=== PATIENT | female | born 1985 | race Caucasian/White ===

== ENCOUNTER 2017-12-28 09:00 | Emergency (ER) | payer OTHER ==
--- NOTE | 2017-12-28 09:21 | EDPHY ---
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 However she does not have fever, sore throat, cough, myalgias, headache. Patient currently has right lower quadrant abdominal pain which started slowly this morning. Associated with nausea and vomiting but no hematemesis or coffee- ground emesis. She has had diarrhea for about 6 weeks and that is unchanged. Symptoms moderate to severe now and not better or worse with anything. REVIEW OF SYSTEMS: Eye: no change in vision ENT: no sore throat Cardiac: no chest pain or syncope Pulmonary: no cough or SOB Abdomen: HPI Musculoskeletal: no back pain Skin: no rash Neuro: no headache Constitutional: no fever : no urinary symptoms A comprehensive 10 point review of systems is otherwise negative aside from elements mentioned in the history of present illness. PAST MEDICAL HISTORY: Includes uterine ablation, , dental surgery Social history: Works at urgent care General Appearance: Alert and conversant, cooperative. Eyes: No scleral icterus. ENT, Mouth: Normal mucous membranes. Respiratory: Normal respiratory effort, breath sounds equal, lungs are clear to auscultation. Cardiovascular: Regular rate and rhythm. Gastrointestinal: Right lower quadrant tenderness to palpation. No Quiros sign. Neurological: Alert, face symmetric, normal motor and sensory in extremities. Skin: Warm and dry, no rashes. Musculoskeletal: No peripheral edema. Normal range of motion of the neck. Psychiatric: Not agitated. Emergency Department course/MDM: Fentanyl 100 mcg IV, Zofran 4 mg IV for nausea and vomiting, IV normal saline for nausea and vomiting. Pelvic and right lower quadrant appendicitis ultrasound. 1110: Fentanyl repeated for pain [address] abdomen and pelvis to evaluate for appendicitis discussed and consented. 1300: Results discussed, still has pain. Toradol 15 mg IV and Percocet 1 orally. Plan to discharge if feeling okay. 1346: evaluation repeated. Patient says she has adequate pain control and would be okay with going home which I think is reasonable. Follow-up with her primary care provider or wharf hand referral. More likely to be ovarian cyst than appendicitis or PID or renal colic or acute surgical abdominal process, at this time. Smoking Status: Current every day smoker Constitutional: Initial Vital Signs Temperature (C) 37.1 C 12/28/17 09:09 Heart Rate 63 12/28/17 09:09 Respiratory Rate 16 12/28/17 09:09 Blood Pressure 129/81 H 12/28/17 09:09 O2 Sat (%) 98 12/28/17 09:09 O2 Delivery Mode Room Air Allergies/Adverse Reactions: bupropion [From Wellbutrin] Allergy (Verified 12/28/17 09:09) moxifloxacin [From Avelox] Allergy (Verified 12/28/17 09:09) Home Medications: Medication Instructions Recorded Ibuprofen 12/28/17 Xanax 12/28/17 oxyCODONE/APAP 5/325 [Percocet] 1 tab PO Q4-6PRN PRN #11 tab 12/28/17 Medical Decision Making - Diagnostics Imaging Results: Imaging Impressions Abdomen Ultrasound 12/28/17 09:33 Impression: 2.2 cm simple appearing cyst right ovary. No evidence for ovarian torsion. Leiomyomatous uterus. Ultrasound Abdomen Limited, Right Lower Quadrant History: Right lower quadrant pain. Findings: Ultrasound was performed of the right lower quadrant. Neither a normal nor an abnormal appendix is visualized. No evidence for free fluid. Impression: Indeterminate study for appendicitis as a normal nor an abnormal appendix is visualized. Results called and discussed with John Swann on 12/28/2017 at 11:20 a.m. Pelvic/Renal Ultrasound 12/28/17 09:33 Impression: 2.2 cm simple appearing cyst right ovary. No evidence for ovarian torsion. Leiomyomatous uterus. Ultrasound Abdomen Limited, Right Lower Quadrant History: Right lower quadrant pain. Findings: Ultrasound was performed of the right lower quadrant. Neither a normal nor an abnormal appendix is visualized. No evidence for free fluid. Impression: Indeterminate study for appendicitis as a normal nor an abnormal appendix is visualized. Results called and discussed with John Swann on 12/28/2017 at 11:[address] 12/28/17 11:36 Impression: 1. Cholelithiasis without definite cholecystitis. 2. Constipation. 3. No CT evidence of appendicitis, abscess or bowel obstruction. 4. Right ovarian 2.4 x 1.8 cm cyst or dominant follicle. Findings and recommendations discussed with Emergency Department physician, Dr. John Swann at 1221 hours on December 28, 2017. Final report concurs with initial preliminary interpretation. Imaging: Discussed imaging studies w/ call worker Radiologist Differential Diagnosis: Differential considered including but not limited to UTI, PID, ovarian torsion or cyst, renal colic, appendicitis, diverticulitis, other surgical problem. - Data Points Laboratory Results: Laboratory Results 12/28/17 09:30 12/28/17 09:30 12/28/17 12/28/17 12/28/17 11:15 09:30 09:30 WBC RBC Hgb Hct MCV MCH MCHC RDW Plt Count MPV Neut % (Auto) Lymph % (Auto) [place] % (Auto) Eos % (Auto) Baso % (Auto) Nucleat RBC Rel Count Absolute Neuts (auto) Absolute Lymphs (auto) Absolute Monos (auto) Absolute Eos (auto) Absolute Basos (auto) Absolute Nucleated RBC Immature Gran % Immature Gran # Sodium 140 mEq/L mEq/L (135-145) Potassium 4.0 mEq/L mEq/L (3.3-5.0) Chloride 108 mEq/L mEq/L (97-110) Carbon Dioxide 23 mEq/l mEq/l (22-31) Anion Gap 9 mEq/L mEq/L (6-14) BUN 9 mg/dL mg/dL (7-23) Creatinine 0.5 mg/dL L mg/dL (0.6-1.0) Estimated GFR > 60 Glucose 96 mg/dL mg/dL (70-100) Calcium 9.6 mg/dL mg/dL (8.5-10.4) Beta HCG, Qual NEGATIVE Urine Color YELLOW Urine Appearance MODERATELY TURBID Urine pH 5.0 (5.0-7.5) Ur Specific [place] 1.023 (1.002-1.030) Urine Protein NEGATIVE (NEGATIVE) Urine Ketones NEGATIVE (NEGATIVE) Urine Blood NEGATIVE (NEGATIVE) Urine Nitrate NEGATIVE (NEGATIVE) Urine Bilirubin NEGATIVE (NEGATIVE) Urine Urobilinogen NEGATIVE EU EU (0.2-1.0) Ur Leukocyte Esterase NEGATIVE (NEGATIVE) Urine Glucose NEGATIVE (NEGATIVE) 12/28/17 09:30 WBC 8.34 10^3/uL 10^3/uL (3.80-9.50) RBC 5.00 10^6/uL 10^6/uL (4.18-5.33) Hgb 14.6 g/dL g/dL (12.6-16.3) Hct 41.5 % % (38.0-47.0) MCV 83.0 fL fL (81.5-99.8) MCH 29.2 pg pg (27.9-34.1) MCHC 35.2 g/dL g/dL (32.4-36.7) RDW 13.8 % % (11.5-15.2) Plt Count 133 10^3/uL L 10^3/uL (150-400) MPV 11.3 fL fL (8.7-11.7) Neut % (Auto) 64.6 % % (39.3-74.2) Lymph % (Auto) 25.4 % % (15.0-45.0) [place] % (Auto) 8.0 % % (4.5-13.0) Eos % (Auto) 1.0 % % (0.6-7.6) Baso % (Auto) 0.4 % % (0.3-1.7) Nucleat RBC Rel Count 0.0 % % (0.0-0.2) Absolute Neuts (auto) 5.39 10^3/uL 10^3/uL (1.70-6.50) Absolute Lymphs (auto) 2.12 10^3/uL 10^3/uL (1.00-3.00) Absolute Monos (auto) 0.67 10^3/uL 10^3/uL (0.30-0.80) Absolute Eos (auto) 0.08 10^3/uL 10^3/uL (0.03-0.40) Absolute Basos (auto) 0.03 10^3/uL 10^3/uL (0.02-0.10) Absolute Nucleated RBC 0.00 10^3/uL 10^3/uL (0-0.01) Immature Gran % 0.6 % % (0.0-1.1) Immature Gran # 0.05 10^3/uL 10^3/uL (0.00-0.10) Sodium Potassium Chloride Carbon Dioxide Anion Gap BUN Creatinine Estimated GFR Glucose Calcium Beta HCG, Qual Urine Color Urine Appearance Urine pH Ur Specific [place] Urine Protein Urine Ketones Urine Blood Urine Nitrate Urine Bilirubin Urine Urobilinogen Ur Leukocyte Esterase Urine Glucose Medications Given: Discontinued Medications Fentanyl (Sublimaze) 100 mcg IVP EDNOW ONE Stop: 12/28/17 09:33 Last Admin: 12/28/17 09:41 Dose: 100 mcg Fentanyl (Sublimaze) 100 mcg IVP EDNOW ONE Stop: 12/28/17 11:11 Last Admin: 12/28/17 11:14 Dose: 100 mcg Sodium Chloride (Ns) 1,000 mls @ 0 mls/hr IV EDNOW ONE; Wide Open PRN Reason: Protocol Stop: 12/28/17 09:33 Last Admin: 12/28/17 09:40 Dose: 1,000 mls Ketorolac Tromethamine (Toradol) 15 mg IVP EDNOW ONE Stop: 12/28/17 13:04 Last Admin: 12/28/17 13:10 Dose: 15 mg Ondansetron HCl (Zofran) 4 mg IVP EDNOW ONE Stop: 12/28/17 09:33 Last Admin: 12/28/17 09:41 Dose: 4 mg Oxycodone/Acetaminophen (Percocet 5/325) 1 tab PO EDNOW ONE Stop: 12/28/17 13:04 Last Admin: 12/28/17 13:10 Dose: 1 tab Departure - Departure Disposition: Home, Routine, Self-Care Clinical Impression: Ovarian cyst Qualifiers: Laterality: right Qualified Code(s): N83.201 - Unspecified ovarian cyst, right side Condition: Good Instructions: Ovarian Cyst (ED) Additional Instructions: Ibuprofen 600 mg by mouth every 8 hr over the next 3 days. You can also use a comparable nonsteroidal if you prefer. Please follow-up with your doctor tomorrow for not better or with your doctor or OBGYN referral next week. Return for worsening or severe pain or fever or vomiting. Referrals: Kim Clark MD [Primary Care Provider] - As per Instructions Erin Robbins MD [Medical Doctor] - As per Instructions Prescriptions: oxyCODONE/APAP 5/325 [Percocet] 1 tab PO Q4-6PRN PRN #11 tab PRN Reason: Pain
[2017-12-28] MEDS ORDERED: NS 1,000 ML IV ONE (09:32)
[2017-12-28] MEDS ORDERED: fentaNYL 100 MCG/2 ML INJ IVP ONE ×2 (09:32→11:10)
[2017-12-28] MEDS ORDERED: ONDANSETRON 4 MG/2 ML VIAL IVP ONE (09:32)
[2017-12-28 10:16] LABS: PLATELET COUNT 133 10^3/uL (150-400)
[2017-12-28] MEDS ORDERED: IOPAMIDOL (ISOVUE-300) 100 ML BTL ONE (11:46)
[2017-12-28] MEDS ORDERED: KETOROLAC 30 MG/1 ML SDV IVP ONE (13:03)
[2017-12-28] MEDS ORDERED: OXYCODONE/APAP 5/325 TAB PO ONE (13:03)
[2017-12-28] MEDS ORDERED: ONDANSETRON 4 MG/2 ML VIAL ONE (13:06)
[2017-12-28 13:57] VITALS: BP 107/65
== END 2017-12-28 13:56 | disposition home or self-care (01) ==
DX: N83.291 Other ovarian cyst, right side (principal); E86.9 Volume depletion, unspecified
CPT/HCPCS: 96374; J1885; J2405; J3010; Q9967

== ENCOUNTER 2018-06-06 09:25 | Emergency (ER) | payer OTHER ==
--- NOTE | 2018-06-06 09:50 | EDPHY ---
H & P Stated Complaint: "vomit blood" bright red- dizzy lower abd pain 2 days ago worse today Source: Patient Exam Limitations: No limitations - Personal History LMP (Females 10-55): 8-14 Days Ago - Medical/Surgical History Hx Asthma: No Hx Chronic Respiratory Disease: No Hx Diabetes: No Hx Cardiac Disease: No Hx Renal Disease: No Hx Cirrhosis: No Hx Alcoholism: No Hx HIV/AIDS: No Hx Splenectomy or Spleen Trauma: No Other PMH: uterine ablation, - Social History Smoking Status: Current every day smoker Time Seen by Provider: 06/06/18 09:49 HPI/ROS: HPI: This is a 32-year-old female who presents with Chief Complaint: "vomit blood" bright red- dizzy lower abd pain 2 days ago worse today Location: Lower Abdominal Quality: Pain, nausea, vomiting Duration: 2 days Signs and Symptoms: no fever, + nausea, + vomiting, no hematemesis, no blood in stool, no abdominal bloating, no diarrhea, no back pain, no urinary symptoms, no vaginal bleeding/discharge, no indigestion, no chest pain, no shortness of breath Timing: Acute, worsening Severity: 09/29 Context: Patient presents with sudden onset last night of right lower quadrant cramping, sharp abdominal pain that is nonradiating in nature and has worsened in intensity to severe this morning. She had 1 episode of vomiting last night of her stomach contents. This morning she has vomited 4 times in the last time several hours and had blood tinged contents. Ate dinner last night around 8:00 p.m. Has not had anything to eat Since. Has a history of tummy tuck. LMP 1-2 weeks ago. Denies drinking alcohol regularly. Does not take ibuprofen or any other NSAIDs regularly but did try ibuprofen yesterday with no relief of the abdominal pain. Modifying Factors: Took Zofran this morning with no relief Comment: ROS: A comprehensive 10 system review of systems is otherwise negative aside from elements mentioned in the history of present illness. MEDICAL/SURGICAL/SOCIAL HISTORY: Medical history: Attention deficit hyperactivity disorder, depression, anxiety Surgical history: Uterine ablation Social history: Current every day smoker. Family history noncontributory. CONSTITUTIONAL: Nontoxic-appearing, moderate distress, adult white female, awake and alert HEENT: Atraumatic and normocephalic, PERRL, EOMI. Nares patent; no rhinorrhea; no nasal mucosal edema. Tympanic membranes clear. Oropharynx clear, no exudate and moist pink mucosa. Airway patent. No lymphadenopathy. No meningismus. Cardiovascular: Normal S1/S2, regular rate, regular rhythm, without murmur rub or gallop. PULMONARY/CHEST: Symmetrical and nontender. Clear to auscultation bilaterally. Good air movement. No accessory muscle usage. ABDOMEN: Well-healed remote vertical incision noted lower abdomen consistent with tummy tuck. Soft, nondistended, moderate right lower quadrant tenderness, no rebound, no guarding, no peritoneal signs, no masses or organomegaly. No CVAT. Positive Rovsing sign. Positive psoas sign. EXTREMITIES: 2/2 pulses, strength 5/5, no deformities, no clubbing, no cyanosis or edema. NEUROLOGICAL: no focal neuro deficits. GCS 15. SKIN: Warm and dry, no erythema. no rash. Good capillary refill. (Gia Kim) Constitutional: Initial Vital Signs Temperature (C) 36.5 C 06/06/18 09:37 Heart Rate 78 06/06/18 09:37 Respiratory Rate 18 06/06/18 09:37 Blood Pressure 125/82 H 06/06/18 09:37 O2 Sat (%) 95 06/06/18 09:37 O2 Delivery Mode Room Air Allergies/Adverse Reactions: acetaminophen [From Percocet] Allergy (Verified 06/06/18 09:36) bupropion [From Wellbutrin] Allergy (Verified 12/28/17 09:09) moxifloxacin [From Avelox] Allergy (Verified 12/28/17 09:09) oxycodone [From Percocet] Allergy (Verified 06/06/18 09:36) Home Medications: Medication Instructions Recorded Adderall 10 mg Tablet 06/06/18 Magnesium Citrate [Magnesium 300 ml PO ONCE #1 bottle 06/06/18 Citrate 300 ml (*)] Ondansetron Odt [Zofran Odt 4 mg 4 mg PO Q4 PRN #12 tab 06/06/18 (*)] Xanax 06/06/18 Zoloft 25mg (*) 06/06/18 Medical Decision Making - Diagnostics Imaging Results: Imaging Impressions Abdomen CT 06/06/18 09:57 Impression: 1. Mild constipation. 2. No CT evidence of appendicitis, abscess or bowel obstruction. 3. 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 Recommend follow up pulmonary consult and CT chest imaging. Findings and recommendations discussed with Emergency Department physician, Gia Kim PA-C at 1131 hour, 06/06/2018. Final report concurs with initial preliminary interpretation. ED Course/Re-evaluation: Vital signs reviewed and stable upon arrival. No systemic signs. IV access, laboratory studies, urinalysis, CT abdomen and pelvis scan with contrast to evaluate for appendicitis ordered Given 2 L normal saline, IV Toradol 30 mg and IV promethazine 12.5 mg 1015: Urinalysis unremarkable. 1039: Laboratory studies reviewed and show WBC 10 K, no anemia, platelet count 131K, No signs of HERON/elevated LFTs/electrolyte imbalance/pancreatitis/ . 1130: Called by Dr. Nguyen, who reports CT abdomen and pelvis scan shows no appendicitis, no obstruction, no diverticulitis, no gallbladder disease, no perforated air. Does show moderate constipation primarily on the right. Incidentally seen several lower pulmonary bilateral nodules and recommends outpatient CT chest/pulmonology consult. 1130: Reassessed patient who appears comfortable. Discuss bowel regimen and and will give magnesium citrate and MiraLax with work excuse. He is advised to increase fluids and fiber in diet. She understands that she needs to follow up outpatient for CT chest of bilateral pulmonary nodules in a smoker. This patient was seen under the supervision of my secondary supervising physician. I evaluated care for this patient with attending. (Gia Kim) The patient was evaluated and managed by the physician diet assistant. I have reviewed this chart and I agree with the findings and plan of care as documented , as indicated by my signature. I am the secondary supervising physician. ( Marlee Bojorquez) Differential Diagnosis: Abdominal pain including but not limited to appendicitis, cholecystitis, gastritis and urinary tract infection. (Gia Kim) - Data Points Laboratory Results: Laboratory Results 06/06/18 09:50 06/06/18 09:50 06/06/18 06/06/18 06/06/18 09:50 09:50 09:50 WBC RBC Hgb Hct MCV MCH MCHC RDW Plt Count MPV Neut % (Auto) Lymph % (Auto) [place] % (Auto) Eos % (Auto) Baso % (Auto) Nucleat RBC Rel Count Absolute Neuts (auto) Absolute Lymphs (auto) Absolute Monos (auto) Absolute Eos (auto) Absolute Basos (auto) Absolute Nucleated RBC Immature Gran % Immature Gran # Sodium 138 mEq/L mEq/L (135-145) Potassium 4.3 mEq/L mEq/L (3.5-5.2) Chloride 108 mEq/L mEq/L (97-110) Carbon Dioxide 21 mEq/l L mEq/l (22-31) Anion Gap 9 mEq/L mEq/L (6-14) BUN 11 mg/dL mg/dL (7-23) Creatinine 0.5 mg/dL L mg/dL (0.6-1.0) Estimated GFR > 60 Glucose 97 mg/dL mg/dL (70-100) Calcium 9.5 mg/dL mg/dL (8.5-10.4) Total Bilirubin 1.0 mg/dL mg/dL (0.1-1.4) Conjugated Bilirubin 0.3 mg/dL mg/dL (0.0-0.5) Unconjugated Bilirubin 0.7 mg/dL mg/dL (0.0-1.1) AST 19 IU/L IU/L (14-46) ALT 22 IU/L IU/L (9-52) Alkaline Phosphatase 53 IU/L IU/L (38-126) Total Protein 7.7 g/dL g/dL (6.3-8.2) Albumin 4.9 g/dL g/dL (3.5-5.0) Lipase 46 IU/L IU/L (23-300) Beta HCG, Qual NEGATIVE Urine Color YELLOW Urine Appearance HAZY Urine pH 5.0 (5.0-7.5) Ur Specific [place] 1.024 (1.002-1.030) Urine Protein NEGATIVE (NEGATIVE) Urine Ketones NEGATIVE (NEGATIVE) Urine Blood NEGATIVE (NEGATIVE) Urine Nitrate NEGATIVE (NEGATIVE) Urine Bilirubin NEGATIVE (NEGATIVE) Urine Urobilinogen NEGATIVE EU EU (0.2-1.0) Ur Leukocyte Esterase NEGATIVE (NEGATIVE) Urine Glucose NEGATIVE (NEGATIVE) 06/06/18 09:50 WBC 10.04 10^3/uL H 10^3/uL (3.80-9.50) RBC 5.34 10^6/uL H 10^6/uL (4.18-5.33) Hgb 15.7 g/dL g/dL (12.6-16.3) Hct 45.2 % % (38.0-47.0) MCV 84.6 fL fL (81.5-99.8) MCH 29.4 pg pg (27.9-34.1) MCHC 34.7 g/dL g/dL (32.4-36.7) RDW 13.4 % % (11.5-15.2) Plt Count 131 10^3/uL L 10^3/uL (150-400) MPV 11.2 fL fL (8.7-11.7) Neut % (Auto) 67.1 % % (39.3-74.2) Lymph % (Auto) 22.7 % % (15.0-45.0) [place] % (Auto) 8.3 % % (4.5-13.0) Eos % (Auto) 0.9 % % (0.6-7.6) Baso % (Auto) 0.4 % % (0.3-1.7) Nucleat RBC Rel Count 0.0 % % (0.0-0.2) Absolute Neuts (auto) 6.74 10^3/uL H 10^3/uL (1.70-6.50) Absolute Lymphs (auto) 2.28 10^3/uL 10^3/uL (1.00-3.00) Absolute Monos (auto) 0.83 10^3/uL H 10^3/uL (0.30-0.80) Absolute Eos (auto) 0.09 10^3/uL 10^3/uL (0.03-0.40) Absolute Basos (auto) 0.04 10^3/uL 10^3/uL (0.02-0.10) Absolute Nucleated RBC 0.00 10^3/uL 10^3/uL (0-0.01) Immature Gran % 0.6 % % (0.0-1.1) Immature Gran # 0.06 10^3/uL 10^3/uL (0.00-0.10) Sodium Potassium Chloride Carbon Dioxide Anion Gap BUN Creatinine Estimated GFR Glucose Calcium Total Bilirubin Conjugated Bilirubin Unconjugated Bilirubin AST ALT Alkaline Phosphatase Total Protein Albumin Lipase Beta HCG, Qual Urine Color Urine Appearance Urine pH Ur Specific [place] Urine Protein Urine Ketones Urine Blood Urine Nitrate Urine Bilirubin Urine Urobilinogen Ur Leukocyte Esterase Urine Glucose Medications Given: Discontinued Medications Sodium Chloride (Ns) 1,000 mls @ 0 mls/hr IV EDNOW ONE; Wide Open PRN Reason: Protocol Stop: 06/06/18 09:58 Last Admin: 06/06/18 10:06 Dose: 1,000 mls Sodium Chloride (Ns) 1,000 mls @ 0 mls/hr IV EDNOW ONE; Wide Open PRN Reason: Protocol Stop: 06/06/18 09:58 Last Admin: 06/06/18 10:06 Dose: 1,000 mls Ketorolac Tromethamine (Toradol) 30 mg IVP EDNOW ONE Stop: 06/06/18 09:58 Last Admin: 06/06/18 10:06 Dose: 30 mg Promethazine HCl (Phenergan) 12.5 mg IVP EDNOW ONE Stop: 06/06/18 09:58 Last Admin: 06/06/18 10:07 Dose: 12.5 mg Departure - Departure Disposition: Home, Routine, Self-Care Clinical Impression: Constipation by delayed colonic transit, Pulmonary nodules, Tobacco user Condition: Good Instructions: Polyethylene Glycol 3350 (By mouth), Constipation (ED), High Fiber Diet (ED), Pulmonary Nodules (ED) Additional Instructions: Follow up outpatient with pulmonology/PCP for pulmonary nodules. It is recommended that you obtain a CT Chest for further evaluation. Please consider tobacco cessation. Consume a minimum of 8-10 glasses of water or electrolyte fluid replacement drinks that include Gatorade, Powerade, Pedialyte. Eat a liquid diet for the next 48 hours and then slowly advance as tolerated. Take magnesium citrate 150 mL x1. If no bowel movement in 4-6 hours take the other 150 mL. Take MiraLax mixed with a bottle of Gatorade daily for the next 3 days and then daily as needed for constipation. Take Zofran 1 tab every 4 hours as needed for nausea, vomiting. Return to the Emergency Room if symptoms do not resolve in the next 48-72 hours , you spike a fever > 102 F, or experience intractable abdominal pain/nausea/ vomiting. Referrals: Kim Clark MD [Primary Care Provider] - As per Instructions Stand Alone Forms: Work Excuse Prescriptions: Magnesium Citrate [Magnesium Citrate 300 ml (*)] 300 ml PO ONCE #1 bottle Ondansetron Odt [Zofran Odt 4 mg (*)] 4 mg PO Q4 PRN #12 tab PRN Reason: Nausea/Vomiting, Use 1st
[2018-06-06] MEDS ORDERED: NS 1,000 ML IV ONE ×2 (09:57)
[2018-06-06] MEDS ORDERED: KETOROLAC 30 MG/1 ML SDV IVP ONE (09:57)
[2018-06-06] MEDS ORDERED: PROMETHAZINE HCL 25 MG/ML INJ IVP ONE (09:57)
[2018-06-06 10:36] LABS: PLATELET COUNT 131 10^3/uL (150-400)
[2018-06-06] MEDS ORDERED: IOPAMIDOL (ISOVUE-300) 100 ML BTL ONE (10:48)
[2018-06-06 11:43] VITALS: BP 107/79
== END 2018-06-06 11:39 | disposition home or self-care (01) ==
DX: K59.01 Slow transit constipation (principal); R91.1 Solitary pulmonary nodule; E86.9 Volume depletion, unspecified; F17.200 Nicotine dependence, unspecified, uncomplicated
CPT/HCPCS: 96374; J1885; J2550; Q9967